=== PATIENT | female | born 1975 | race Caucasian/White ===

== ENCOUNTER 2022-11-17 07:45 | Outpatient (OUT) | payer OTHER, SELFPAY ==
[2022-11-17 08:24] LABS: Estimated Average Glucose 85 mg/dL; Glycohemoglobin A1C 4.6 % (4.5-6.2)
[2022-11-17 08:37] LABS: Free T3 3.27 pg/mL (2.18-3.98); Glucose 75 mg/dL (74-106)
[2022-11-17 10:16] LABS: Free T4 1.13 ng/dL (0.76-1.46)
[2022-11-18 04:07] LABS: Estradiol <5.0 pg/mL (.); Progesterone 0.1 ng/mL (.); Sex Horm Binding Glob, Serum 77.6 nmol/L (24.6-122.0); Thyroid Peroxidase (TPO) Ab 10 IU/mL (0-34)
[2022-11-18 14:08] LABS: Insulin 3.8 uIU/mL (2.6-24.9)
[2022-11-18 16:12] LABS: Thyroglobulin Antibody <1.0 IU/mL (0.0-0.9)
[2022-11-21 00:09] LABS: Serotonin, Serum 36 ng/mL (31-207)
[2022-11-22 17:08] LABS: Estrone, Serum 34 pg/mL (.)
[2022-11-25 00:06] LABS: Free Testosterone(Direct) 1.2 pg/mL (0.0-4.2); Testosterone 30 ng/dL (4-50); Thyroglobulin (TG-RIA) 11 ng/mL (.)
== END 2022-11-17 07:46 | disposition home or self-care (01) ==
LOC: LAB 07:46
PROVIDERS: Visit Provider Obstetrics & Gynecology
DX: E34.9 Endocrine disorder, unspecified (principal); E89.41 Symptomatic postprocedural ovarian failure
CPT/HCPCS: 36415; 82306; 82533; 82627; 82670; 82679; 82728; 82947; 83036; 83525; 84144; 84260; 84270; 84402; 84403; 84432; 84436; 84439; 84443; 84481; 84482; 84681; 86376; 86800

== ENCOUNTER 2023-01-10 21:18 | Outpatient (REF) | payer OTHER, SELFPAY ==
[2023-01-14 00:07] LABS: Age Gdln ACOG Testing Note (.); HPV Aptima Negative (Negative); IGP, Aptima HPV, rfx 16/18,45 Note (.)
== END 2023-01-10 21:19 | disposition home or self-care (01) ==
LOC: LAB 21:18
PROVIDERS: Visit Provider Emergency Medicine
DX: Z01.419 Encounter for gynecological examination (general) (routine) without abnormal findings (principal)
CPT/HCPCS: 87624; G0145

== ENCOUNTER 2023-02-09 09:12 | Outpatient (OUT) | payer OTHER, SELFPAY ==
[2023-02-09 09:58] LABS: Alanine Aminotransferase 21 U/L (14-59); Albumin Level 3.6 g/dL (3.4-5.0); Alkaline Phosphatase 87 U/L (46-116); Anion Gap 12.8; Aspartate Amino Transferase 14 U/L (15-37); BUN Creatinine Ratio 14.1; Bilirubin Total 0.4 mg/dL (0.2-1.0); Calcium 9.3 mg/dL (8.5-10.1); Chloride 109 mmol/L (98-107); Estimated GFR (African America >60 (>=60); Estimated GFR (Non-African Ame >60 (>=60); Globulin 3.5 g/dL; Glucose 65 mg/dL (74-106); Potassium 3.8 mmol/L (3.5-5.1); Sodium 147 mmol/L (136-145); Total Protein 7.1 g/dL (6.4-8.2)
== END 2023-02-09 09:13 | disposition home or self-care (01) ==
LOC: LAB 09:13
PROVIDERS: Visit Provider Obstetrics & Gynecology
DX: E88.810 Metabolic syndrome (principal)
CPT/HCPCS: 36415; 80053